=== PATIENT | male | born 1955 ===

== ENCOUNTER 2021-09-30 08:43 | Emergency (ER) | payer SELFPAY ==
[2021-09-30] MEDS ORDERED: Albuterol/Ipratropium 3.0-0.5 MG/3 ML Neb Soln ONE (09:17)
[2021-09-30] MEDS ORDERED: Albuterol/Ipratropium 3.0-0.5 MG/3 ML Neb Soln NEB ONE (09:38)
[2021-09-30 10:01] LABS: ANION GAP 16.5 mEq/L (7-13)
[2021-09-30 10:53] LABS: CORONAVIRUS COVID-19 NAA NEGATIVE (NEGATIVE)
[2021-09-30] MEDS ORDERED: Sodium Chloride 0.9% 1,000 ML IV ONE (11:29)
[2021-09-30] MEDS ORDERED: Magnesium Sulfate/Water 2 GM in Premix Bag 1 BAG IV ONE (11:30)
== END 2021-09-30 15:00 ==
LOC: DL.ED 08:43
DX: N17.9 Acute kidney failure, unspecified (principal); T42.6X5A Adverse effect of other antiepileptic and sedative-hypnotic drugs, initial encounter; I13.0 Hypertensive heart and chronic kidney disease with heart failure and stage 1 through stage 4 chronic kidney disease, or unspecified chronic kidney disease; E11.22 Type 2 diabetes mellitus with diabetic chronic kidney disease; N18.30 Chronic kidney disease, stage 3 unspecified; I50.9 Heart failure, unspecified; Z79.82 Long term (current) use of aspirin; Z79.4 Long term (current) use of insulin; Z79.899 Other long term (current) drug therapy; Z20.822 Contact with and (suspected) exposure to COVID-19
CPT/HCPCS: 0240U; 36415; 71045; 80053; 81003; 82150; 83605; 83690; 83735; 83880; 84484; 85025; 86140; 93005; 94640; 96365; 96366; 99285-25; J3475; J7030; J7620-GY